=== PATIENT | female | born 1990 | race Caucasian/White ===

== ENCOUNTER 2017-01-22 02:03 | Emergency (ER) | payer BC ==
[~2017-01-22] VITALS: Ht 175.3 cm; Wt 63.5 kg
[2017-01-22] MEDS ORDERED: LORazepam Inj 2mg/ml 1ml IV ONE (02:30)
[2017-01-22 02:32] VITALS: BP 153/91
[2017-01-22 02:38] LABS: BASOPHILS % (AUTO) 2.5 % (0.0-2.0); EOSINOPHILS % (AUTO) 0.3 % (0.0-3.0); LYMPHOCYTES % (AUTO) 23.7 % (20.0-45.0); MEAN CORPUSCULAR HEMOGLOBIN 29.5 PG (27.0-31.0); MEAN CORPUSCULAR HGB CONC 33.2 G/DL (32.0-36.0); MEAN CORPUSCULAR VOLUME 89 FL (80-99); MEAN PLATELET VOLUME 4.8 FL (6.5-10.1); NEUTROPHILS % (AUTO) 67.5 % (45.0-75.0); PLATELET COUNT 554 K/UL (150-450); RED BLOOD COUNT 5.31 M/UL (4.20-5.40); RED CELL DISTRIBUTION WIDTH 13.9 % (11.6-14.8)
[2017-01-22 02:55] LABS: ALANINE AMINOTRANSFERASE 18 U/L (3-33); ALBUMIN/GLOBULIN RATIO 2.2 (1.0-2.7); ALCOHOL 178 mg/dL; ANION GAP 18 (5-15); ASPARTATE AMINO TRANSFERASE 31 U/L (5-40); CALCIUM 10.2 mg/dL (8.6-10.2); CARBON DIOXIDE 31 mEQ/L (20-30); CHLORIDE 97 mEQ/L (98-107); CREATININE 1.1 mg/dL (0.5-0.9); GLOMERULAR FILTRATION RATE > 60 mL/min (>60); HEMOLYSIS 5; POTASSIUM 3.3 mEQ/L (3.4-4.9); SODIUM 146 mEQ/L (135-145); TOTAL PROTEIN 7.4 g/dL (6.6-8.7)
[2017-01-22] MEDS ORDERED: LIBRIUM10 MG ORAL (05:36)
[2017-01-22] MEDS ORDERED: ZOFRAN ODT4 MG ORAL (05:36)
[2017-01-22] MEDS ORDERED: RANITIDINE HCL150 MG ORAL (05:36)
[2017-01-22 05:50] VITALS: BP 124/90
[2017-01-22 05:51] VITALS: BP 124/90
--- NOTE | 2017-01-22 06:11 | Emergency Room Report ---
History of Present Illness General Chief Complaint: Seizure Source: Patient, EMS Present Illness HPI Patient presents with a possible seizure activity patient reports that she was not able to drink her usual amount of alcohol And therefore likely had a seizure from that Patient reports that this has happened to her several times in the past at this time complaint of epigastric discomfort Vomited earlier however denies any vomiting at this time Patient reports that she was using alcohol and him a note to get alcohol system However does not feel that it was the same amount as usual Denies any fevers or chills Allergies: Coded Allergies: No Known Allergies (Unverified , 01/22/17) Patient History Past Medical History: see triage record Pertinent Family History: none Last Menstrual Period: UKN Now: No Reviewed Nursing Documentation: PMH: Agreed, PSxH: Agreed Nursing Documentation-PMH Past Medical History: No History, Except For Review of Systems All Other Systems: negative except mentioned in HPI Physical Exam Vital Signs Date Time Temp Pulse Resp B/P Pulse Ox O2 Delivery O2 Flow Rate FiO2 01/22/17 01:58 98.2 114 19 144/97 98 Room Air Sp02 EP Interpretation: reviewed, normal General Appearance: no apparent distress Head: normocephalic, atraumatic Eyes: bilateral eye EOMI, bilateral eye PERRL ENT: hearing grossly normal, normal pharynx, TMs + canals normal, uvula midline Neck: full range of motion, supple, no meningismus, no bony tend Respiratory: lungs clear, normal breath sounds, no rhonchi, no respiratory distress, no retraction, no accessory muscle use Cardiovascular #1: normal peripheral pulses, regular rate, rhythm, no edema, no gallop, no JVD, no murmur Gastrointestinal: normal bowel sounds, non tender, soft, no mass, no organomegaly, non-distended, no guarding, no hernia, no pulsatile mass, no rebound Musculoskeletal: normal inspection Neurologic: oriented x3, responsive, talent management specialist III-XII nml as tested, motor strength/ tone normal, sensory intact Psychiatric: mood/affect normal Skin: normal color, no rash, warm/dry, palpation normal Lymphatic: normal inspection, no adenopathy Medical Decision Making Diagnostic Impression: Primary Impression: alcoholic gastritis Additional Impression: alcohol withdrawal ER Course Patient reports that she is transgender Therefore a test was not obtained Patient's blood work is at appropriate levels there are signs of Mild dehydration Patient is significantly better At this time requesting Librium Patient was provided medication for home in stable for close outpatient follow Labs Test 01/22/17 02:18 01/22/17 04:45 White Blood Count 6.0 K/UL (4.8-10.8) Red Blood Count 5.31 M/UL (4.20-5.40) Hemoglobin 15.7 G/DL (12.0-16.0) Hematocrit 47.2 % (37.0-47.0) Mean Corpuscular Volume 89 FL (80-99) Mean Corpuscular Hemoglobin 29.5 PG (27.0-31.0) Mean Corpuscular Hemoglobin Concent 33.2 G/DL (32.0-36.0) Red Cell Distribution Width 13.9 % (11.6-14.8) Platelet Count 554 K/UL (150-450) Mean Platelet Volume 4.8 FL (6.5-10.1) Neutrophils (%) (Auto) 67.5 % (45.0-75.0) Lymphocytes (%) (Auto) 23.7 % (20.0-45.0) Monocytes (%) (Auto) 6.0 % (1.0-10.0) Eosinophils (%) (Auto) 0.3 % (0.0-3.0) Basophils (%) (Auto) 2.5 % (0.0-2.0) Sodium Level 146 mEQ/L (135-145) Potassium Level 3.3 mEQ/L (3.4-4.9) Chloride Level 97 mEQ/L (98-107) Carbon Dioxide Level 31 mEQ/L (20-30) Anion Gap 18 (5-15) Blood Urea Nitrogen 8 mg/dL (7-23) Creatinine 1.1 mg/dL (0.5-0.9) Estimat Glomerular Filtration Rate > 60 mL/min (>60) Glucose Level 99 mg/dL (74-106) Calcium Level 10.2 mg/dL (8.6-10.2) Total Bilirubin 0.5 mg/dL (0.0-1.2) Aspartate Amino Transf (AST/SGOT) 31 U/L (5-40) Alanine Aminotransferase (ALT/SGPT) 18 U/L (3-33) Alkaline Phosphatase 91 U/L (35-104) Total Protein 7.4 g/dL (6.6-8.7) Albumin 5.1 g/dL (3.5-5.2) Globulin 2.3 g/dL Albumin/Globulin Ratio 2.2 (1.0-2.7) Serum Alcohol 178 mg/dL Urine Opiates Screen Negative (NEGATIVE) Urine Barbiturates Screen Negative (NEGATIVE) Phencyclidine (PCP) Screen Negative (NEGATIVE) Urine Amphetamines Screen Positive (NEGATIVE) Urine Benzodiazepines Screen Negative (NEGATIVE) Urine Cocaine Screen Negative (NEGATIVE) Urine Marijuana (THC) Screen Negative (NEGATIVE) Last Vital Signs Date Time Temp Pulse Resp B/P Pulse Ox O2 Delivery O2 Flow Rate FiO2 01/22/17 05:51 98.2 103 15 124/90 94 Room Air Status: improved Disposition: HOME, SELF-CARE Condition: Improved Scripts Chlordiazepoxide Hcl* (LIBRIUM*) 10 Mg Capsule 5 MG ORAL BID, #12 CAP 0 Refills Prov: GIULIA LU D.O. 01/22/17 Ranitidine Hcl* (ZANTAC*) 150 Mg Tablet 150 MG ORAL TWICE A DAY, #30 TAB Prov: GIULIA LU D.O. 01/22/17 Ondansetron Odt* (ZOFRAN ODT*) 4 Mg Tab.rapdis 4 MG ORAL Q6H Y for Nausea & Vomiting, #15 TAB 0 Refills Prov: GIULIA LU D.O. 01/22/17 Referrals: NOT CHOSEN IPA/MD,REFERRING (PCP) Patient Instructions: Alcohol Withdrawal Additional Instructions: Patient is provided with the discharge instructions notified to follow up with primary doctor in the next 2-3 days otherwise return to the er with any worsening symptoms. Please note that this report is being documented using [employer] technology. This can lead to erroneous entry secondary to incorrect interpretation by the dictating instrument. GIULIA LU D.O. January 22, 2017 06:11
== END 2017-01-22 06:09 | disposition home or self-care (01) ==
LOC: EDBD 02:03 → EMR 02:25
DX: K29.20 Alcoholic gastritis without bleeding (principal); F10.239 Alcohol dependence with withdrawal, unspecified
CPT/HCPCS: 36415; 80053; 80300; 85025; 96360; 96374; 96375; 99284; G0480; J2405; 80329